=== PATIENT | female | born 1985 | race Caucasian/White ===

== ENCOUNTER 2018-05-09 21:38 | Emergency (ER) | payer MEDICAID ==
[~2018-05-09] VITALS: Ht 157.5 cm; Wt 73.0 kg
[~2018-05-09 21:38] MED LIST: PREN-385 PO
[2018-05-09 21:40] VITALS: BP 121/85
[2018-05-09] MEDS ORDERED: KETOROLAC 30 MG/ML VIAL IM ONE (23:40)
[2018-05-09] MEDS ORDERED: ONDANSETRON 4 MG ODT PO ONE (23:40)
[2018-05-10 00:05] VITALS: BP 120/78
== END 2018-05-10 00:06 | disposition home or self-care (01) ==
LOC: MED 21:38
DX: R51 Headache (principal); R11.0 Nausea; R30.0 Dysuria; Z79.899 Other long term (current) drug therapy; Z90.49 Acquired absence of other specified parts of digestive tract
CPT/HCPCS: 81002; 81025; 96372; 99283; J1885; S0119

== ENCOUNTER 2019-06-07 05:58 | Emergency (ER) | payer MEDICAID ==
[~2019-06-07] VITALS: Ht 152.4 cm; Wt 72.6 kg
--- NOTE | 2019-06-07 06:04 | NUR ---
PT AMBULATED TO BED #6
[2019-06-07 06:10] VITALS: BP 118/71
--- NOTE | 2019-06-07 06:13 | NUR ---
DR VENEGAS AT BEDSIDE
--- NOTE | 2019-06-07 06:14 | NUR ---
C/O VAGINAL BLEEDING ON SATURDAY AND AGAIN STARTING THIS AM. LOWER BACK PAIN 11/02. APPROX 9 WEEKS , CONFIRMED BY US. LMP MARCH 23, 2019. 4, LIVING 3, DENIES ABORTIONS/MISCARRIAGES. DENIES AB PAIN, N/V/D, OR FEVER. VSS. AA0X4. BED IS DOWN, LOCKED, BED RAIL X 1. PMH- DENIES
--- NOTE | 2019-06-07 06:17 | NUR ---
PATIENT STATES SHE IS ONLY SPOTTING BLOOD WITH EVERY WIPE
--- NOTE | 2019-06-07 06:35 | NUR ---
IV INSERTED AND LABS DRAWN BEDSIDE
[2019-06-07 07:03] LABS: APPEARANCE,URINE HAZY (CLEAR); BILIRUBIN,URINE NEGATIVE (NEGATIVE); BLOOD, URINE 3+ (NEGATIVE); COLOR,URINE YELLOW (YELLOW); LEUKOCYTE ESTERASE ,URINE 2+ (NEGATIVE); NITRITE, URINE NEGATIVE (NEGATIVE); PH,URINE 6.5 (5.0-9.0); UGLUCOSE NEGATIVE (NEGATIVE)
[2019-06-07 07:04] LABS: HEMATOCRIT 40.1 % (36-48); HEMOGLOBIN 13.3 g/dL (12.0-16.0); MEAN CORPUSCULAR HEMOGLOBIN 29 pg (27-31); MEAN CORPUSCULAR HGB CONC 33 g/dL (33-37); MEAN CORPUSCULAR VOLUME 86.3 fL (80-94); PLATELET COUNT (AUTO) 221 K/uL (140-450); RED BLOOD CELL COUNT(AUTO) 4.65 MIL/uL (4.20-5.40); RED CELL DISTRIBUTION WIDTH 12.3 % (11.6-13.7); WHITE BLOOD COUNT (AUTO) 7.4 K/uL (4.8-10.8)
--- NOTE | 2019-06-07 07:05 | NUR ---
REPORT GIVEN TO BARRY IQBAL, PT AA0X4. RESTING IN BED COMFORTABLY WITH FAMILY BEDSIDE
--- NOTE | 2019-06-07 07:05 | NUR ---
RECEIVED REPORT FROM PER DIEM INTERPRETER RN.
[2019-06-07 07:16] LABS: ANION GAP 17.4 (8-16); CARBON DIOXIDE 20.1 mmol/L (21-32); CREATININE 0.6 mg/dL (0.6-1.3); POTASSIUM 3.5 mmol/L (3.5-5.1)
[2019-06-07 07:21] LABS: RBC,URINE 11-20 (MOD) /HPF (0-5); URINE AMORPHOUS URATE 1+ /HPF (None Seen)
--- NOTE | 2019-06-07 07:25 | NUR ---
ULTRASOUND AT BEDSIDE AT THIS TIME.
[2019-06-07 07:26] LABS: BASOPHILS % (MANUAL) 0 % (0-2); EOSINOPHILS % (MANUAL) 1 % (0-4); LYMPHOCYTES % (MANUAL) 23 % (20-46)
[2019-06-07 07:27] LABS: MONOCYTES % (MANUAL) 8 % (5-12)
--- NOTE | 2019-06-07 07:28 | NUR ---
DR. BURNETT AT BEDSIDE.
--- NOTE | 2019-06-07 07:35 | NUR ---
Patient discharged with v/s stable by Dr. Anne. Written and verbal after care instructions given and explained. Patient verbalized understanding. Ambulatory with steady gait. All questions addressed prior to discharge. Advised to follow up with PMD.
--- NOTE | 2019-06-07 07:35 | NUR ---
IV removed, catheter intact and site benign. Applied folded 4x4 gauze and tape to stop bleeding.
[2019-06-07 07:40] VITALS: BP 110/58
--- NOTE | 2019-06-07 07:44 | NUR ---
Kamari nayak in EDM - 06/07/19 at 0744 by FRANKLIN IV removed, catheter intact and site benign. Applied folded 4x4 gauze and tape to stop bleeding.
== END 2019-06-07 07:35 | disposition home or self-care (01) ==
LOC: MED 05:58
DX: O46.91 Antepartum hemorrhage, unspecified, first trimester (principal); Z3A.10 10 weeks gestation of pregnancy; Z79.899 Other long term (current) drug therapy
CPT/HCPCS: 36415; 76801; 80048; 81001; 81025; 84702; 85025; 87086; 99284; Q0092